=== PATIENT | male | born 1980 | race Caucasian/White ===

== ENCOUNTER 2021-09-07 10:59 | Inpatient (IN) ==
[2021-09-07] MEDS ORDERED: ASPIRIN 325 MG TABLET PO STA (12:20)
[2021-09-07 12:45] LABS: Alanine Aminotransferase 32 U/L (16-61); Albumin 3.5 G/DL (3.4-5.0); Alkaline Phosphatase 33 U/L (45-117); Aspartate Amino Transferase 17 U/L (0-37); Basophils # 0.1 10*3/uL (0.0-0.2); Basophils % 0.7 % (0.0-0.8); Bilirubin,Total < 0.39 MG/DL (0.20-1.00); Blood Urea Nitrogen 22 MG/DL (7-18); Calcium 8.6 MG/DL (8.5-10.1); Carbon Dioxide 21 MMOL/L (21-32); Eosinophils # 0.1 10*3/uL (0.0-0.87); Eosinophils % 0.4 % (0.00-10.9); Estimated Glom Filtration Rate 69 ML/MIN; Glucose 266 MG/DL (74-106); Hematocrit 30.8 VOL% (42.0-52.0); Immature Granulocytes % 1.4 %; Immature Granulocytes Absolute 0.23 #; Lymphocytes # 2.4 10*3/uL (1.4-4.0); Lymphocytes % 14.4 % (21.2-54.2); Mean Corpuscular HGB Conc 29.2 GM/DL (32-36); Mean Corpuscular Volume 71.8 FL (87-102); Mean Platelet Volume 10.5 FL (9.6-12.0); Monocytes % 6.8 % (1.7-12.7); Neutrophils % 76.3 % (38.7-73.9); Osmolality,Calculated 279.2 MOS/KG (273-304); Platelet Count 419 T/CUMM (130-400); Red Blood Count 4.29 MC/CUMM (3.8-5.5); Sodium 134 MMOL/L (136-145); Total Protein 6.7 G/DL (6.4-8.2); White Blood Count 16.7 T/CUMM (4-12)
[2021-09-07 12:52] LABS: Potassium 6.6 MMOL/L (3.5-5.1)
[2021-09-07] MEDS ORDERED: SODIUM POLYSTYRENE SULFATE 15 GM/60 ML BOTTLE PO STA (14:17)
[2021-09-07] MEDS ORDERED: INSULIN REGULAR 100 UNIT/ML IV ONE (14:17)
[2021-09-07] MEDS ORDERED: SODIUM BICARBONATE 50 MEQ/50 ML VIAL IV STA (14:18)
[2021-09-07] MEDS ORDERED: DEXTROSE 50% 25 GM/50 ML VIAL IV STA (14:18)
[2021-09-07] MEDS ORDERED: CALCIUM GLUCONATE 1,000 MG in SODIUM CHLORIDE 0.9% 100 ML IV ONE (14:19)
[2021-09-07] MEDS ORDERED: ALBUTEROL 2.5 MG/3 ML NEB RESP TX STA (14:19)
[2021-09-07] MEDS ORDERED: DEXTROSE 50% 25 GM/50 ML SYRINGE IV ONE (14:30)
[2021-09-07] MEDS ORDERED: SODIUM CHLORIDE 0.9% 1,000 ML IV STA (14:37)
[2021-09-07] MEDS ORDERED: DEXTROSE 50% 25 GM/50 ML SYRINGE IV PRN (15:05)
[2021-09-07] MEDS ORDERED: ONDANSETRON 4 MG/2 ML VIAL IV PRN (15:05)
[2021-09-07] MEDS ORDERED: GLUCAGON 1 MG VIAL IM PRN ×2 (15:05)
[2021-09-07] MEDS ORDERED: ACETAMINOPHEN 325 MG TABLET PO PRN (15:05)
[2021-09-07] MEDS ORDERED: CYCLOBENZAPRINE 10 MG TABLET PO PRN (15:19)
[2021-09-07] MEDS ORDERED: PROMETHAZINE 25 MG TABLET PO PRN (15:19)
[2021-09-07] MEDS ORDERED: BUPRENORPHINE TRANSDERM SCH (15:30)
[2021-09-07] MEDS ORDERED: BENZTROPINE 1 MG TABLET PO PRN (16:23)
[2021-09-07] MEDS: METOCLOPRAMIDE 10 MG TABLET PO SCH ×2 (17:57→20:56)
[2021-09-07] MEDS: INSULIN LISPRO 100 UNIT/ML SUBCUT SCH ×2 (17:58→20:59)
[2021-09-07] MEDS: PREGABALIN 75 MG CAPSULE PO SCH (20:55)
[2021-09-07] MEDS: ALPRAZolam 0.5 MG TABLET PO SCH (20:56)
[2021-09-07] MEDS: SODIUM CHLORIDE 0.9% 1,000 ML IV SCH (20:56)
[2021-09-07] MEDS: NABUMETONE 500 MG TABLET PO SCH (20:56)
[2021-09-07] MEDS: ENOXAPARIN 40 MG/0.4 ML SYRINGE SUBCUT SCH (20:56)
[2021-09-07] MEDS: METOPROLOL TARTRATE 50 MG TABLET PO SCH (20:57)
[2021-09-07] MEDS: INSULIN GLARGINE 100 UNIT/ML SUBCUT SCH (21:00)
[2021-09-08] MEDS: SODIUM CHLORIDE 0.9% 1,000 ML IV SCH ×4 (04:30→23:18)
[2021-09-08 06:25] LABS: Basophils # 0.1 10*3/uL (0.0-0.2); Basophils % 0.5 % (0.0-0.8); Eosinophils % 0.1 % (0.00-10.9); Hematocrit 24.4 VOL% (42.0-52.0); Immature Granulocytes % 1.2 %; Immature Granulocytes Absolute 0.18 #; Lymphocytes # 2.8 10*3/uL (1.4-4.0); Lymphocytes % 18.2 % (21.2-54.2); Mean Corpuscular HGB Conc 28.7 GM/DL (32-36); Mean Platelet Volume 10.7 FL (9.6-12.0); Monocytes % 7.2 % (1.7-12.7); Neutrophils % 72.8 % (38.7-73.9); White Blood Count 15.1 T/CUMM (4-12)
[2021-09-08 06:27] LABS: Platelet Count 318 T/CUMM (130-400); Red Blood Count 3.39 MC/CUMM (3.8-5.5)
[2021-09-08 06:31] LABS: Alanine Aminotransferase 24 U/L (16-61); Albumin 3.1 G/DL (3.4-5.0); Alkaline Phosphatase 27 U/L (45-117); Aspartate Amino Transferase 12 U/L (0-37); Bilirubin,Total < 0.39 MG/DL (0.20-1.00); Blood Urea Nitrogen 37 MG/DL (7-18); Calcium 8.4 MG/DL (8.5-10.1); Carbon Dioxide 25 MMOL/L (21-32); Estimated Glom Filtration Rate 90 ML/MIN; Glucose 121 MG/DL (74-106); HDL Cholesterol 27 MG/DL (40-60); Osmolality,Calculated 284.7 MOS/KG (273-304); Risk Ratio 6.04; Sodium 138 MMOL/L (136-145); Thyroid Stimulating Hormone 0.619 uIU/ml (0.358-3.74); Total Protein 6.2 G/DL (6.4-8.2); Triglycerides 450 MG/DL (2-150)
[2021-09-08] MEDS: INSULIN LISPRO 100 UNIT/ML SUBCUT SCH ×4 (07:30→20:52)
[2021-09-08] MEDS ORDERED: CYANOCOBALAMIN 1000 MCG/1 ML VIAL IM SCH (09:00)
[2021-09-08] MEDS ORDERED: SODIUM CHLORIDE 0.9% 1,000 ML IV PRN (09:21)
[2021-09-08] MEDS: ASPIRIN EC 81 MG TABLET PO SCH (10:02)
[2021-09-08] MEDS: CHOLECALCIFEROL 1,000 UNIT TABLET PO SCH (10:02)
[2021-09-08] MEDS: FLUoxetine 20 MG CAPSULE PO SCH (10:03)
[2021-09-08] MEDS: PREGABALIN 75 MG CAPSULE PO SCH ×2 (10:04→20:38)
[2021-09-08] MEDS: PANTOPRAZOLE 40 MG TABLET PO SCH (10:04)
[2021-09-08] MEDS: OMEGA 3 ACID ETHYL ESTERS 1 GM CAPSULE PO SCH (10:04)
[2021-09-08] MEDS: VITAMIN E 400 UNIT CAPSULE PO SCH (10:04)
[2021-09-08] MEDS: ASCORBIC ACID 500 MG TABLET PO SCH (10:04)
[2021-09-08] MEDS: ALPRAZolam 0.25 MG TABLET PO SCH (10:04)
[2021-09-08] MEDS: MAGNESIUM OXIDE 400 MG TABLET PO SCH (10:04)
[2021-09-08] MEDS: METOPROLOL TARTRATE 50 MG TABLET PO SCH ×2 (10:04→20:38)
[2021-09-08] MEDS: METOCLOPRAMIDE 10 MG TABLET PO SCH ×4 (10:05→20:38)
[2021-09-08] MEDS: NABUMETONE 500 MG TABLET PO SCH ×2 (10:05→20:38)
[2021-09-08] MEDS: amLODIPine 5 MG TABLET PO SCH (10:09)
[2021-09-08 16:46] LABS: Hematocrit 25.3 VOL% (42.0-52.0); Hemoglobin 7.5 GM/DL (14.0-18.0)
[2021-09-08] MEDS: ALPRAZolam 0.5 MG TABLET PO SCH (20:38)
[2021-09-08] MEDS: ENOXAPARIN 40 MG/0.4 ML SYRINGE SUBCUT SCH (20:39)
[2021-09-08] MEDS: INSULIN GLARGINE 100 UNIT/ML SUBCUT SCH (20:39)
[2021-09-09 05:43] LABS: Basophils # 0.1 10*3/uL (0.0-0.2); Basophils % 0.8 % (0.0-0.8); Eosinophils # 0.2 10*3/uL (0.0-0.87); Eosinophils % 1.2 % (0.00-10.9); Hematocrit 25.7 VOL% (42.0-52.0); Hemoglobin 7.6 GM/DL (14.0-18.0); Immature Granulocytes % 2.4 %; Lymphocytes # 3.9 10*3/uL (1.4-4.0); Lymphocytes % 31.2 % (21.2-54.2); Mean Corpuscular HGB Conc 29.6 GM/DL (32-36); Mean Corpuscular Volume 75.6 FL (87-102); Mean Platelet Volume 10.2 FL (9.6-12.0); Monocytes % 7.5 % (1.7-12.7); NRBC # 0.02 10*3/uL; Neutrophils % 56.9 % (38.7-73.9); Platelet Count 320 T/CUMM (130-400); Red Cell Distribution Width 18.9 % (9.3-17.3); White Blood Count 12.5 T/CUMM (4-12)
[2021-09-09 05:46] LABS: Calcium 8.2 MG/DL (8.5-10.1); Osmolality,Calculated 282.5 MOS/KG (273-304); Potassium 3.9 MMOL/L (3.5-5.1)
[2021-09-09] MEDS: SODIUM CHLORIDE 0.9% 1,000 ML IV SCH ×2 (07:04→14:41)
[2021-09-09] MEDS: INSULIN LISPRO 100 UNIT/ML SUBCUT SCH ×4 (07:38→20:39)
[2021-09-09] MEDS: OMEGA 3 ACID ETHYL ESTERS 1 GM CAPSULE PO SCH (09:13)
[2021-09-09] MEDS: FLUoxetine 20 MG CAPSULE PO SCH (09:13)
[2021-09-09] MEDS: ASPIRIN EC 81 MG TABLET PO SCH (09:14)
[2021-09-09] MEDS: VITAMIN E 400 UNIT CAPSULE PO SCH (09:14)
[2021-09-09] MEDS: ALPRAZolam 0.25 MG TABLET PO SCH (09:15)
[2021-09-09] MEDS: MAGNESIUM OXIDE 400 MG TABLET PO SCH (09:15)
[2021-09-09] MEDS: PANTOPRAZOLE 40 MG TABLET PO SCH ×2 (09:15→20:39)
[2021-09-09] MEDS: METOCLOPRAMIDE 10 MG TABLET PO SCH ×4 (09:16→20:38)
[2021-09-09] MEDS: PREGABALIN 75 MG CAPSULE PO SCH ×2 (09:18→20:38)
[2021-09-09] MEDS: ASCORBIC ACID 500 MG TABLET PO SCH (09:18)
[2021-09-09] MEDS: METOPROLOL TARTRATE 50 MG TABLET PO SCH ×2 (09:19→20:38)
[2021-09-09] MEDS: NABUMETONE 500 MG TABLET PO SCH (09:19)
[2021-09-09] MEDS: CHOLECALCIFEROL 1,000 UNIT TABLET PO SCH (09:19)
[2021-09-09 09:48] LABS: % Iron Saturation 3.4 % (18-50); Ferritin 3.8 ng/mL (26-388)
[2021-09-09] MEDS ORDERED: POLYETHYLENE GLYCOL POWDER 17 GM PACK PO PRN (12:59)
[2021-09-09] MEDS: amLODIPine 5 MG TABLET PO SCH (13:11)
[2021-09-09] MEDS: ALPRAZolam 0.5 MG TABLET PO SCH (20:38)
[2021-09-09] MEDS: INSULIN GLARGINE 100 UNIT/ML SUBCUT SCH (20:39)
[2021-09-10] MEDS: SODIUM CHLORIDE 0.9% 1,000 ML IV SCH ×2 (03:21→06:35)
[2021-09-10 05:15] LABS: Basophils # 0.1 10*3/uL (0.0-0.2); Basophils % 0.8 % (0.0-0.8); Eosinophils # 0.1 10*3/uL (0.0-0.87); Eosinophils % 1.1 % (0.00-10.9); Hematocrit 24.4 VOL% (42.0-52.0); Hemoglobin 7.3 GM/DL (14.0-18.0); Immature Granulocytes % 2.1 %; Immature Granulocytes Absolute 0.19 #; Lymphocytes % 22.6 % (21.2-54.2); Mean Corpuscular HGB Conc 29.9 GM/DL (32-36); Mean Corpuscular Volume 73.5 FL (87-102); Mean Platelet Volume 10.1 FL (9.6-12.0); Monocytes % 8.3 % (1.7-12.7); NRBC # 0.02 10*3/uL; Neutrophils % 65.1 % (38.7-73.9); Platelet Count 285 T/CUMM (130-400); Red Blood Count 3.32 MC/CUMM (3.8-5.5); Red Cell Distribution Width 18.8 % (9.3-17.3); White Blood Count 8.9 T/CUMM (4-12)
[2021-09-10 05:37] LABS: Calcium 8.2 MG/DL (8.5-10.1); Osmolality,Calculated 281.3 MOS/KG (273-304); Potassium 4.2 MMOL/L (3.5-5.1)
[2021-09-10] MEDS: LACTATED RINGERS 1,000 ML IV SCH (07:49)
[2021-09-10] MEDS: METOCLOPRAMIDE 10 MG TABLET PO SCH ×4 (08:49→20:53)
[2021-09-10] MEDS ORDERED: GLYCOPYRROLATE 0.4 MG/2 ML VIAL ONE (08:51)
[2021-09-10] MEDS ORDERED: LIDOCAINE 2% 5 ML VIAL ONE (08:51)
[2021-09-10] MEDS ORDERED: propofoL 200 MG/20 ML VIAL IV ONE ×4 (08:51→09:20)
[2021-09-10] MEDS: INSULIN LISPRO 100 UNIT/ML SUBCUT SCH ×4 (08:52→20:56)
[2021-09-10] MEDS ORDERED: PHENYLEPHRINE 1 MG/10 ML SYRINGE IV ONE (09:10)
[2021-09-10] MEDS ORDERED: SODIUM CHLORIDE 0.9% 1,000 ML IV PRN (09:45)
[2021-09-10] MEDS: PREGABALIN 75 MG CAPSULE PO SCH ×2 (10:39→20:53)
[2021-09-10] MEDS: MAGNESIUM OXIDE 400 MG TABLET PO SCH (10:39)
[2021-09-10] MEDS: ASPIRIN EC 81 MG TABLET PO SCH (10:39)
[2021-09-10] MEDS: OMEGA 3 ACID ETHYL ESTERS 1 GM CAPSULE PO SCH (10:39)
[2021-09-10] MEDS: METOPROLOL TARTRATE 50 MG TABLET PO SCH ×2 (10:39→20:53)
[2021-09-10] MEDS: PANTOPRAZOLE 40 MG TABLET PO SCH ×2 (10:40→20:53)
[2021-09-10] MEDS: ALPRAZolam 0.25 MG TABLET PO SCH (10:40)
[2021-09-10] MEDS: amLODIPine 5 MG TABLET PO SCH (10:40)
[2021-09-10] MEDS: VITAMIN E 400 UNIT CAPSULE PO SCH (10:40)
[2021-09-10] MEDS: ASCORBIC ACID 500 MG TABLET PO SCH (10:41)
[2021-09-10] MEDS: CHOLECALCIFEROL 1,000 UNIT TABLET PO SCH (10:41)
[2021-09-10] MEDS: FLUoxetine 20 MG CAPSULE PO SCH (10:44)
[2021-09-10] MEDS ORDERED: MAGNESIUM SULF RIDER 2 GM/50 ML PREMIX IV ONE (11:58)
[2021-09-10] MEDS: ALPRAZolam 0.5 MG TABLET PO SCH (20:52)
[2021-09-10] MEDS: INSULIN GLARGINE 100 UNIT/ML SUBCUT SCH (20:56)
[2021-09-10] MEDS: IRON SUCROSE 200 MG in SODIUM CHLORIDE 0.9% 100 ML IV SCH (21:41)
[2021-09-11] MEDS: SODIUM CHLORIDE 0.9% 1,000 ML IV SCH ×4 (04:30→20:24)
[2021-09-11] MEDS: INSULIN LISPRO 100 UNIT/ML SUBCUT SCH ×4 (08:45→20:29)
[2021-09-11] MEDS: LACTATED RINGERS 1,000 ML IV SCH (09:26)
[2021-09-11] MEDS: METOCLOPRAMIDE 10 MG TABLET PO SCH ×4 (09:27→20:25)
[2021-09-11] MEDS: PANTOPRAZOLE 40 MG TABLET PO SCH ×2 (09:27→20:25)
[2021-09-11] MEDS: VITAMIN E 400 UNIT CAPSULE PO SCH (09:27)
[2021-09-11] MEDS: ASPIRIN EC 81 MG TABLET PO SCH (09:27)
[2021-09-11] MEDS: ALPRAZolam 0.25 MG TABLET PO SCH (09:27)
[2021-09-11] MEDS: OMEGA 3 ACID ETHYL ESTERS 1 GM CAPSULE PO SCH (09:27)
[2021-09-11] MEDS: amLODIPine 5 MG TABLET PO SCH (09:28)
[2021-09-11] MEDS: FLUoxetine 20 MG CAPSULE PO SCH (09:28)
[2021-09-11] MEDS: METOPROLOL TARTRATE 50 MG TABLET PO SCH ×2 (09:28→20:25)
[2021-09-11] MEDS: PREGABALIN 75 MG CAPSULE PO SCH ×2 (09:28→20:25)
[2021-09-11] MEDS: CHOLECALCIFEROL 1,000 UNIT TABLET PO SCH (09:28)
[2021-09-11] MEDS: ASCORBIC ACID 500 MG TABLET PO SCH (09:28)
[2021-09-11] MEDS: MAGNESIUM OXIDE 400 MG TABLET PO SCH (09:33)
[2021-09-11] MEDS: IRON SUCROSE 200 MG in SODIUM CHLORIDE 0.9% 100 ML IV SCH (09:34)
[2021-09-11] MEDS: ALPRAZolam 0.5 MG TABLET PO SCH (20:25)
[2021-09-11] MEDS: INSULIN GLARGINE 100 UNIT/ML SUBCUT SCH (20:30)
[2021-09-11] MEDS: POLYETHYLENE GLYCOL POWDER 17 GM PACK PO SCH (21:49)
[2021-09-12] MEDS: SODIUM CHLORIDE 0.9% 1,000 ML IV SCH (03:34)
[2021-09-12 06:01] LABS: Basophils # 0.1 10*3/uL (0.0-0.2); Basophils % 0.6 % (0.0-0.8); Eosinophils # 0.1 10*3/uL (0.0-0.87); Eosinophils % 0.9 % (0.00-10.9); Hematocrit 31.5 VOL% (42.0-52.0); Hemoglobin 9.5 GM/DL (14.0-18.0); Immature Granulocytes % 1.5 %; Immature Granulocytes Absolute 0.14 #; Lymphocytes # 1.7 10*3/uL (1.4-4.0); Lymphocytes % 18.5 % (21.2-54.2); Mean Corpuscular HGB Conc 30.2 GM/DL (32-36); Mean Platelet Volume 9.8 FL (9.6-12.0); Monocytes % 8.5 % (1.7-12.7); Platelet Count 287 T/CUMM (130-400); Red Blood Count 4.09 MC/CUMM (3.8-5.5); Red Cell Distribution Width 20.4 % (9.3-17.3); White Blood Count 9.4 T/CUMM (4-12)
[2021-09-12] MEDS: METOCLOPRAMIDE 10 MG TABLET PO SCH (07:35)
[2021-09-12] MEDS: INSULIN LISPRO 100 UNIT/ML SUBCUT SCH (07:55)
[2021-09-12] MEDS: LACTATED RINGERS 1,000 ML IV SCH (08:55)
[2021-09-12] MEDS ORDERED: FERRIC GLUCONATE COMPLEX 125 MG in SODIUM CHLORIDE 0.9% 100 ML IV SCH (09:00)
[2021-09-12] MEDS ORDERED: DEXTROSE 10% 250 ML BAG IV PRN (11:00)
[2021-09-12] MEDS: METOPROLOL TARTRATE 50 MG TABLET PO SCH (11:17)
[2021-09-12] MEDS: ASPIRIN EC 81 MG TABLET PO SCH (11:17)
[2021-09-12] MEDS: PREGABALIN 75 MG CAPSULE PO SCH (11:18)
[2021-09-12] MEDS: OMEGA 3 ACID ETHYL ESTERS 1 GM CAPSULE PO SCH (11:18)
[2021-09-12] MEDS: POLYETHYLENE GLYCOL POWDER 17 GM PACK PO SCH (11:18)
[2021-09-12] MEDS: ASCORBIC ACID 500 MG TABLET PO SCH (11:18)
[2021-09-12] MEDS: PANTOPRAZOLE 40 MG TABLET PO SCH (11:18)
[2021-09-12] MEDS: FLUoxetine 20 MG CAPSULE PO SCH (11:18)
[2021-09-12] MEDS: amLODIPine 5 MG TABLET PO SCH (11:18)
[2021-09-12] MEDS: CHOLECALCIFEROL 1,000 UNIT TABLET PO SCH (11:18)
[2021-09-12] MEDS: MAGNESIUM OXIDE 400 MG TABLET PO SCH (11:18)
[2021-09-12] MEDS: VITAMIN E 400 UNIT CAPSULE PO SCH (11:19)
[2021-09-12] MEDS: ALPRAZolam 0.25 MG TABLET PO SCH (11:19)
[2021-09-12 12:05] VITALS: BP 146/58
== END 2021-09-12 14:35 | disposition home or self-care (01) | DRG 378 ==
LOC: N.ED 10:59 → N.EDINP 10:59 → SUATTDRO 15:05 → N.TELEN 16:15 → SUATTDRO 09-09 14:18
PROVIDERS: ADMIT Internal Medicine Geriatric Medicine; ATTEND Internal Medicine